=== PATIENT | male | born 1985 | race Caucasian/White ===

== ENCOUNTER 2024-11-08 20:50 | Emergency (ER) | payer BC ==
[~2024-11-08] VITALS: Ht 188 cm; Wt 115.7 kg
[2024-11-08] MEDS ORDERED: Morphine 4mg INJECTION 4 MG/ML INJ IM STA (21:03)
[2024-11-08] MEDS ORDERED: IBUPROFEN 600 MG TAB ONE (21:10)
[2024-11-08] MEDS: IBUPROFEN 600 MG TAB PO STA (21:16)
[2024-11-08] MEDS: KETOROLAC TROMETHAMINE 60 MG/2 ML VIAL IM ONE (21:18)
[2024-11-08] MEDS: Morphine 2mg Syringe 2 MG/ML SYR IM STA (22:12)
[2024-11-08] MEDS ORDERED: ULTRAM 50MG50 MG PO (22:22)
[2024-11-08 22:43] VITALS: PULSE 81; RESP 20; TEMP 98.7; O2SAT 98
== END 2024-11-08 22:53 | disposition home or self-care (01) ==
LOC: ER 21:04
DX: S42.392A Other fracture of shaft of left humerus, initial encounter for closed fracture (principal); X50.1XXA Overexertion from prolonged static or awkward postures, initial encounter; Y92.89 Other specified places as the place of occurrence of the external cause; J45.909 Unspecified asthma, uncomplicated
CPT/HCPCS: 29125; 73060; 99284; J2270

== ENCOUNTER → 2024-11-23 | Outpatient (REF) | payer BC ==
[~2024-11-23] MED LIST: ULTRAM 50MG50 MG PO; VENTOLIN HFA18 GM INH
== END ==
LOC: RAD 09:22 → EDSTATUS 09:30
PROVIDERS: ATTEND Orthopaedic Surgery Sports Medicine
DX: Z01.818 Encounter for other preprocedural examination (principal); S42.332A Displaced oblique fracture of shaft of humerus, left arm, initial encounter for closed fracture
CPT/HCPCS: 76000

== ENCOUNTER → 2024-11-23 | Day surgery (SDC) | payer BC ==
[~2024-11-23] MED LIST changes: +ACETAMINOPHEN 1000 MG/100 ML 0 ML IV ONE; +ACETAMINOPHEN 1000 MG/100 ML 100 ML IV ONE; +BUPIVACAINE LIPOSOME/PF 266 MG/20 ML IJ ONE; +DEXAMETHASONE SOD PHOS INJ 4 MG/ML SDV ONE; +FENTANYL CITRATE/PF 100MCG/2 ML INJ ONE; +GLYCOPYRROLATE INJ 0.2 MG/ML VIAL ONE; +LACTATED RINGER'S 1,000 ML ONE; +LIDOCAINE HCL 2% LOCAL INJ 5 ML SDV VIAL INJ ONE; +MIDAZOLAM HCL 2 MG/2 ML VIAL ONE; +NEOSTIGMINE 1 MG/ML 10ML VIAL ONE; +ONDANSETRON HCL INJ 2MG/ML 2ML 2 MG/ML VIAL ONE; +PROPOFOL IV EMULSION 10 MG/ML 20 ML VIAL ONE
[2024-11-23] MEDS: LACTATED RINGER'S 1,000 ML ONE (08:00)
[2024-11-23] MEDS: MEPERIDINE HCL INJ 25 MG/ML VIAL ONE (15:42)
[2024-11-23 16:05] VITALS: BP 138/78; PULSE 98; RESP 16; O2SAT 95
== END | disposition home or self-care (01) ==
LOC: OR 11-22 05:00
PROVIDERS: ATTEND Orthopaedic Surgery Sports Medicine
DX: S42.332A Displaced oblique fracture of shaft of humerus, left arm, initial encounter for closed fracture (principal); G47.33 Obstructive sleep apnea (adult) (pediatric); I10 Essential (primary) hypertension; J45.909 Unspecified asthma, uncomplicated; K76.0 Fatty (change of) liver, not elsewhere classified; E66.01 Morbid (severe) obesity due to excess calories; Z71.3 Dietary counseling and surveillance; Y93.72 Activity, wrestling; Z79.899 Other long term (current) drug therapy; Z68.42 Body mass index [BMI] 45.0-49.9, adult
CPT/HCPCS: 24515; C1713 ×8; C9290 ×2; J0131; J0690; J1100; J2175; J2250; J2405; J2704; J2710; J3010; J7121 ×2; J0666; J2003